=== PATIENT | female | born 1990 | race African-American/Black ===

== ENCOUNTER 2019-03-24 21:07 | Emergency (ER) | payer OTHER ==
[~2019-03-24] VITALS: Ht 157.5 cm; Wt 59.0 kg
[2019-03-24 21:26] VITALS: Ht 157.5 cm; Wt 59.0 kg
[2019-03-24 22:02] LABS: microscopic required? YES; urine erythrocyte TRACE (NEGATIVE)
[2019-03-24 22:13] LABS: BASOPHIL % 0.6 % (0-2); PLATELET COUNT 231 x10^3mcL (130-400); RED CELL DISTRIBUTION WIDTH 13.4 % (11.5-14.5)
[2019-03-24 23:53] VITALS: BP 109/66
== END 2019-03-24 23:54 | disposition home or self-care (01) ==
LOC: ED 21:07
PROVIDERS: Emergency Medicine
DX: O20.0 Threatened abortion (principal); R11.0 Nausea; Z3A.01 Less than 8 weeks gestation of pregnancy; Z98.890 Other specified postprocedural states
CPT/HCPCS: 36415